=== PATIENT | male | born 1995 | race Caucasian/White ===

== ENCOUNTER 2017-06-04 22:27 | Emergency (ER) | payer OTHER ==
[~2017-06-04] VITALS: Ht 175.3 cm; Wt 118.0 kg
[2017-06-04] MEDS ORDERED: IBUPROFEN 600 MG TABLET PO ONE (23:30)
[2017-06-04] MEDS ORDERED: POVIDONE-IODINE 10% 120 ML SOLUTION TP ONE (23:30)
[2017-06-04] MEDS ORDERED: ACETAMINOPHEN/CODEINE 300-30 MG TABLET PO ONE (23:30)
[2017-06-04] MEDS ORDERED: CEPHALEXIN MONOHYDRATE 500 MG CAPSULE PO ONE (23:30)
[2017-06-04 23:54] VITALS: BP 142/75
== END 2017-06-04 23:57 | disposition home or self-care (01) ==
LOC: EMS 22:31
DX: S61.402A Unspecified open wound of left hand, initial encounter (principal); W34.010A Accidental discharge of airgun, initial encounter; Y93.89 Activity, other specified; Y92.89 Other specified places as the place of occurrence of the external cause; Y99.8 Other external cause status
CPT/HCPCS: 29280; 99284

== ENCOUNTER 2017-11-26 11:15 | Emergency (ER) | payer OTHER ==
[~2017-11-26] VITALS: Ht 175.3 cm; Wt 100.0 kg
[2017-11-26 11:26] VITALS: BP 154/88
[2017-11-26 12:50] LABS: INFLUENZA TYPE A POSITIVE FOR TYPE A (NEGATIVE); INFLUENZA TYPE B NEGATIVE FOR TYPE B (NEGATIVE)
== END 2017-11-26 14:10 | disposition home or self-care (01) ==
LOC: EMS 11:17
DX: J11.1 Influenza due to unidentified influenza virus with other respiratory manifestations (principal); H66.92 Otitis media, unspecified, left ear
CPT/HCPCS: 87804; 99284

== ENCOUNTER 2017-12-26 21:59 | Emergency (ER) | payer OTHER ==
[~2017-12-26] VITALS: Ht 175.3 cm; Wt 118.2 kg
[2017-12-26] MEDS ORDERED: IBUPROFEN 600 MG TABLET PO ONE (23:15)
[2017-12-26 23:17] VITALS: BP 148/82
== END 2017-12-26 23:23 | disposition home or self-care (01) ==
LOC: EMS 22:03
DX: M54.5 Low back pain (principal)
CPT/HCPCS: 72100; 99284